=== PATIENT | female | born 1995 | race Caucasian/White ===

== ENCOUNTER 2019-12-02 08:00 | Outpatient (CLI) | payer BC, SELFPAY ==
--- NOTE | 2019-12-02 | ECHO_ITS ---
Patient Info Name: Negrita Sims Age: 24 years : 1995 Gender: Female Ht: 67 in Wt: 144 lbs BSA: 1.76 m2 HR: 90 bpm BP: 124 / 84 mmHg Technical Quality: Good Exam Date: 12/02/2019 8:36 AM Exam Location: [facility] Patient Status: Outpatient Admit Date: 12/02/2019 Staff Ordering Physician: Andrew Love MD Professor Of Social Work: Will Freeman RDCS, RT Attending Provider: Andrew Love MD Referring Physician: Ivan CADENA; Exam Type: CA echo doppler color flow Study Info Indications R00.2 - Palpitations Complete two-dimensional, color flow and Doppler transthoracic echocardiogram is performed. Summary 1. Left ventricular chamber dimension is normal. 2. Left ventricular systolic function is normal, estimated at 60-65%. 3. The left ventricular diastolic function is normal. 4. E/e' 5 is not elevated. 5. Global longitudinal strain is normal at -19.9%. 6. There is trace mitral valve regurgitation. 7. Dilated inferior vena cava with >50% collapse upon inspiration consistent with elevated right atrial pressure, 5 mmHg. Left Ventricle E/e' 5 is not elevated. Global longitudinal strain is normal at -19.9%. Left ventricular chamber dimension is normal. Left ventricular systolic function is normal, estimated at 60-65%. The left ventricular diastolic function is normal. Right Ventricle Right ventricular chamber dimension is normal. Right ventricular systolic function is normal. Left Atria Left atrial chamber dimension is normal. Right Atria Right atrial chamber dimension is normal. Aortic Valve The aortic valve is trileaflet. There is no aortic valve stenosis. There is no aortic valve regurgitation. Pulmonic Valve There is no pulmonic regurgitation. Mitral Valve There is no mitral valve stenosis. There is trace mitral valve regurgitation. Tricuspid Valve There is no tricuspid valve regurgitation. Pericardium/Pleural There is no pericardial effusion. Inferior Vena Cava Dilated inferior vena cava with >50% collapse upon inspiration consistent with elevated right atrial pressure, 5 mmHg. Aorta The aortic root size at the sinus of Valsalva is normal. Left Ventricular Outflow Tract Name Value Normal LVOT Doppler LVOT Peak Gradient 4 mmHg LVOT Mean Gradient 2 mmHg LVOT VTI 18 cm LVOT VTI/AV VTI Ratio 1.0 Mitral Valve Name Value Normal MV Doppler MV Decel [place] 516 cm/s2 MV PHT 45 ms MV Area (PHT) 4.9 cm2 4.0-5.0 MV Diastolic Function MV E Peak Velocity 80 cm/s MV A Peak Velocity 76 cm/s MV E/A 1.1 MV Decel Time 156 ms Tric
--- NOTE | 2019-12-02 | EST_ITS ---
Patient Info Name: Negrita Sims Age: 24 years : 1995 Gender: Female Ht: 67 in Wt: 144 lbs BSA: 1.76 m2 Exam Date: 12/02/2019 9:31 AM Exam Location: [facility] Patient Status: Outpatient Admit Date: 12/02/2019 Staff Ordering Physician: Andrew Love MD Attending Provider: Andrew Love MD Exercise Technologist: La Nena Zimmerman RDCS Exercise Physician: Jimmy Mills DO Exam Type: CA stress test treadmill Study Info Indications R00.2 - Palpitations A treadmill exercise stress test was performed. Summary 1. 1. Negative Jason exercise stress test for ischemic ST changes by ECG criteria. 2. 2. Good functional capacity, achieving 12 METs of workload. 3. 3. Appropriate HR response to exercise. 4. 4. Appropriate HR recovery at 1 minute post exercise. 5. 5. No imaging with stress testing. 6. 6. Patient informed of the above results. Protocol: Jason Stress ECG Details Stage: REST Duration (min): 4 min : 48 sec Speed (mph): 0.0 Grade (%): 0 HR (bpm): 99 SBP (mmHg): 120 DBP (mmHg): 76 METS: --- Stage: REST Duration (min): 6 min : 13 sec Speed (mph): 0.0 Grade (%): 0 HR (bpm): 84 SBP (mmHg): 120 DBP (mmHg): 76 METS: --- Stage: REST Duration (min): 8 min : 4 sec Speed (mph): 0.0 Grade (%): 0 HR (bpm): 92 SBP (mmHg): 120 DBP (mmHg): 76 METS: --- Stage: STAGE 1 Duration (min): 1 min : 0 sec Speed (mph): 1.7 Grade (%): 10 HR (bpm): 117 SBP (mmHg): 120 DBP (mmHg): 76 METS: --- Stage: STAGE 1 Duration (min): 2 min : 0 sec Speed (mph): 1.7 Grade (%): 10 HR (bpm): 123 SBP (mmHg): 120 DBP (mmHg): 76 METS: --- Stage: STAGE 1 Duration (min): 3 min : 0 sec Speed (mph): 1.7 Grade (%): 10 HR (bpm): 130 SBP (mmHg): 128 DBP (mmHg): 75 METS: --- Stage: STAGE 2 Duration (min): 1 min : 0 sec Speed (mph): 2.5 Grade (%): 12 HR (bpm): 139 SBP (mmHg): 128 DBP (mmHg): 75 METS: --- Stage: STAGE 2 Duration (min): 2 min : 0 sec Speed (mph): 2.5 Grade (%): 12 HR (bpm): 147 SBP (mmHg): 134 DBP (mmHg): 68 METS: --- Stage: STAGE 2 Duration (min): 3 min : 0 sec Speed (mph): 2.5 Grade (%): 12 HR (bpm): 153 SBP (mmHg): 134 DBP (mmHg): 68 METS: --- Stage: STAGE 3 Duration (min): 1 min : 0 sec Speed (mph): 3.4 Grade (%): 14 HR (bpm): 161 SBP (mmHg): 147 DBP (mmHg): 68 METS: --- Stage: STAGE 3 Duration (min): 2 min : 0 sec Speed (mph): 3.4 Grade (%): 14 HR (bpm): 168 SBP (mmHg): 147 DBP (mmHg): 68 METS: --- Stage: STAGE 3 Duration (min): 3 min : 0 sec Speed (mph): 3.4 Grade (%): 14 HR (bpm): 174 SBP (mmHg): 162 DBP (mmHg): 68 METS: --- Stage: STAGE 4 Duration (min): 1 min : 0 sec Speed (mph): 4.2 Grade (%): 16
--- NOTE | 2019-12-06 12:18 | WPDHOLTEREM ---
Holter/Event Monitor Holter/Event Monitor Date of procedure: 12/02/19 Procedure Type: 48 hour holter monitor Indications: Palpitations Conclusion: 1. 48 hour holter monitor on 12/02/19. 2. Underlying rhythm is sinus rhythm. HR range 57-174 bpm; average HR 89 bpm. 3. There are 2 premature supraventricular complexes. No supraventricular tachycardia. 4. There is one premature ventricular complex. No ventricular tachycardia. 5. No sinoatrial or atrioventricular blocks. No significant pauses greater than 2 seconds. 6. Patient reports symptoms of pounding heart, shortness of breath, chest pain, disoriented vision which demonstrate sinus rhythm, HR 90-169 bpm.
== END 2019-12-02 08:01 | disposition home or self-care (01) ==
PROVIDERS: PCP Emergency Medicine; Visit Provider Emergency Medicine
DX: R00.2 Palpitations (principal)
CPT/HCPCS: 93017; 93225; 93226; 93306

== ENCOUNTER → 2020-02-01 14:41 | Outpatient (CLI) | payer BC, SELFPAY ==
--- NOTE | ~2020-02-01 | MR_ITS ---
EXAMINATION: MR brain/brain stem wo con DATE: 02/01/2020 15:15 INDICATION: Headache. TECHNIQUE: Magnetic resonance imaging (MRI) of the brain and brainstem was performed without intraven ous contrast. Sequences included sagittal and axial T1-weighted FSE, axial diffusion-weighted FS EPI, axial T2*-weighted GRE, axial T2-weighted FLAIR Propeller, and axial T2-weighted Propeller. Apparent diffusion coefficient (ADC) maps were created. COMPARISON: None. FINDINGS: There is no intracranial hemorrhage, acute infarction, or abnormal intracranial mass lesion . The ventricles are normal in size. The orbits are normal. There is mild mucosal thickening in the e thmoid sinuses. The mastoid air cells are normal. IMPRESSION: 1. Normal brain. Reviewed, dictated and finalized at location A. IMPRESSION: 1. Normal brain.
== END ==
PROVIDERS: PCP Emergency Medicine; Visit Provider Emergency Medicine
DX: R51 Headache (principal)
CPT/HCPCS: 70551

== ENCOUNTER 2021-06-18 09:16 | Emergency (ER) | payer BC, SELFPAY ==
[2021-06-18 09:53] VITALS: BP 132/89; PULSE 116; RESP 16; TEMP 36.1; O2SAT 100
--- NOTE | 2021-06-18 11:32 | PC.NURSE ---
Report and care to RADHA Hart
--- NOTE | 2021-06-18 11:36 | ED.GENADULT ---
HPI - General Adult General Chief complaint: Back Pain/Injury Stated complaint: Back Pain Time Seen by Provider: 06/18/21 11:00 Source: patient Mode of arrival: ambulatory Limitations: no limitations History of Present Illness HPI narrative: Patient is a 25-year-old female with chief complaint of spasms to her low back. Patient reports that she woke up with spasming to her neck and did some stretches so the neck spasms resolved with the low back spasms presented. Patient denies any falls or other mechanisms of direct trauma. Patient reports the pain is worse with rotation and flexion. Patient denies saddle paresthesias, loss of bowel or bladder function or neurologic deficits. Patient denies any urinary symptoms including increased urination or hematuria. Patient denies flank pain. Related Data Home Medications Medication Instructions Recorded Confirmed sertraline 50 mg tablet 50 mg PO DAILY tablet 05/09/21 05/09/21 Allergies Allergy/AdvReac Type Severity Reaction Status Date / Time No Known Allergies Allergy Verified 06/18/21 10:31 Review of Systems Review of Systems: CONSTITUTIONAL: Denies fever, chills, or sweats. EYES: Denies visual changes, redness, or discharge. ENT: Denies rhinorrhea, congestion, sore throat, or otalgia. CARDIOVASCULAR: Denies chest pain, palpitations, or edema. RESPIRATORY: Denies cough or dyspnea. GASTROINTESTINAL: Denies abdominal pain, nausea, vomiting, or diarrhea. GENITOURINARY: Denies dysuria or hematuria. SKIN: Denies rash or itching. MUSCULOSKELETAL: Reports back pain, denies joint pain, or myalgia. NEUROLOGIC: Denies headache, numbness, dizziness, or weakness. PSYCHIATRIC: Denies anxiety or depression. [facility] Social History Social History (Updated 05/09/21 @ 13:31 by Marina Mandujano CNA) Smoking status: Never smoker Second hand tobacco smoke exposure: No Alcohol intake: current Drinks per week: 2 Substance use: never Substance use type: does not use Exam Narrative: GENERAL: Well-appearing, well-nourished, and in no acute distress. HEAD: Normocephalic, atraumatic. EYES: PERRLA and EOMI. NECK: Supple. Range of motion intact. No pain to palpation. CHEST: Clear to auscultation. No respiratory distress. No wheezes rales or rhonchi HEART: Regular rate and rhythm. No murmur heard. Normal peripheral pulses. BACK: No vertebral point tenderness or step-offs palpated. Range of motion intact with flexion and extension cause discomfort to the left lower lumbar paraspinal muscles which are also tender to palpation. No outward signs of trauma. EXTREMITIES: Normal range of motion. No edema. SKIN: Warm, dry, no rash. NEURO: No focal deficits. Alert and oriented x3. PSYCH: Normal mood and affect. Course Vital Signs Vital signs: Vital Signs Temperature 97 F L 06/18/21 09:53 Pulse Rate 116 H 06/18/21 09:53 Respiratory Rate 16 06/18/21 09:53 Blood Pressure 132/89 06/18/21 09:53 Pulse Oximetry 100 06/18/21 09:53 Temperature 97 F L 06/18/21 09:53 Pulse Rate 116 H 06/18/21 09:53 Respiratory Rate 16 06/18/21 09:53 Blood Pressure 132/89 06/18/21 09:53 Pulse Oximetry 100 06/18/21 09:53 Medical Decision Making MDM Narrative Medical decision making narrative: Patients pain is positional in nature and localized to back without signs of cord compression or cauda equina based on neurological exam, skeletal exam and history. No fever or other significant factors to suggest osteomyelitis or spinal epidural abscess. No symptoms or signs to suggest pain is referred from abdominal or / cardiopulmonary sources. No pulsatile masses noted on exam. Patient ambulates with steady gait and is stable for outpatient management given case findings. Discussed treatment for musculoskeletal symptoms and the need to follow-up primary care for further investigation if symptoms persist. Patient has been instructed if she develops any of the aforementioned or emerg
[2021-06-18] MEDS: KETOROLAC (*BKC) 60 MG/2 ML VIAL IM (12:20)
[2021-06-18] MEDS: ORPHENADRINE CITRATE 100 MG TABLET.ER PO (12:25)
== END 2021-06-18 13:00 | disposition home or self-care (01) ==
PROVIDERS: Emergency Provider Emergency Medicine; PCP Internal Medicine
DX: M62.830 Muscle spasm of back (principal)
CPT/HCPCS: 81025; 96372; 99283; A9270; J1885